=== PATIENT | female | born 1995 | race Caucasian/White ===

== ENCOUNTER → 2018-08-02 | Outpatient (CLI) | payer BC ==
[2018-08-02 12:50] LABS: Basophils % (A) 1 %; Eosinophils # (A) 0.1 k/uL (0-0.7); Eosinophils % (A) 3 %; HCT 40.3 % (34.0-46.0); HGB 12.7 gm/dL (11.4-16.0); Lymphocytes # (A) 1.7 k/uL (1.0-4.8); Lymphocytes % (A) 32 %; MCHC 31.5 g/dL (31.0-37.0); MCV 88.8 fL (80.0-100.0); Mean Platelet Volume 6.2; Monocytes # (A) 0.2 k/uL (0-1.0); Monocytes % (A) 5 %; Neutrophils # (A) 3.1 k/uL (1.3-7.7); Neutrophils % (A) 58 %; Platelet Count 293 k/uL (150-450); RBC 4.54 m/uL (3.80-5.40); RDW 12.5 % (11.5-15.5); WBC 5.4 k/uL (3.8-10.6)
[2018-08-02 19:56] LABS: Codfish IgE <0.10 kU/L; Egg White IgE 0.28 kU/L
[2018-08-02 19:57] LABS: Peanut IgE <0.10 kU/L; Soybean IgE <0.10 kU/L
[2018-08-02 19:58] LABS: Clam IgE <0.10 kU/L; Shrimp IgE <0.10 kU/L; Walnut IgE (Food) <0.10 kU/L
[2018-08-02 19:59] LABS: Scallop IgE <0.10 kU/L
[2018-08-02 20:51] LABS: Albumin 4.3 g/dL (3.80-4.90); Albumin/Globulin Ratio 2.26 (1.20-2.10); Anion Gap 6.5 mmol/L (4.00-12.00); Calcium 9.3 mg/dL (8.7-10.3); Carbon Dioxide 27.5 mmol/L (21.6-31.8); Globulin 1.9 g/dL (1.6-3.3); Potassium 4.5 mmol/L (3.5-5.5); Total Bilirubin 0.4 mg/dL (0.2-1.2); Total Protein 6.2 g/dL (6.2-8.2)
[2018-08-02 20:52] LABS: Immunoglobulin E 9.47 IU/mL (0.00-114.00)
== END | disposition home or self-care (01) ==
LOC: LABWHC1 11:42
PROVIDERS: ATTEND Nurse Practitioner Family
DX: K92.1 Melena (principal); R19.7 Diarrhea, unspecified; R19.4 Change in bowel habit
CPT/HCPCS: 36415; 80053; 82785; 84443; 85025; 86003; 87045; 87046; 87328; 87329

== ENCOUNTER 2018-10-03 08:37 | Day surgery (SDC) | payer BC ==
[2018-09-28 15:30] VITALS: BMI 22.3
[~2018-10-03 08:37] MED LIST: DEXAMETHASONE SOD PHOSPHATE 10 MG/ML 1 ML VIAL IV ONE; LACTATED RINGERS 1,000 ML IV SCH; ONDANSETRON 4 MG/2 ML VIAL IVP ONE
[2018-10-03 09:03] VITALS: RESP 16; TEMP 98.4
[2018-10-03] MEDS ORDERED: LIDOCAINE 1% 20 ML VIAL (10MG/ML) FOR IV START INTRADERMA ONE (09:07)
[2018-10-03] MEDS ORDERED: MIDAZOLAM 2 MG/2 ML VIAL ONE (09:39)
[2018-10-03] MEDS ORDERED: PROPOFOL 10 MG/ML 20 ML VIAL IV ONE (09:39)
[2018-10-03] MEDS ORDERED: LIDOCAINE 1% INJ 10MG/ML (20 ML MDV) ONE (09:39)
--- NOTE | 2018-10-03 10:28 | P.PCN ---
Date of Procedure: 10/03/18 Procedure(s) Performed: Procedure: Colonoscopy and biopsy. Preoperative diagnosis: Rectal bleeding. Postoperative diagnosis: 1. 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 2. Rectal biopsies obtained. Preparation: HalfLytely prep. Sedation: Was provided by anesthesia. Brief clinical history: The patient is a 22-year-old female who I have evaluated in the office 08/18/2018 because of change in bowel habits with frequent loose bowel movements with mucus and blood since September of last year. This evaluation is scheduled for possible inflammatory bowel disease. Procedure: With the patient on her left lateral decubitus position and after informed consent and adequate sedation, the perianal area was inspected and it did not show any fissures or fistulas. There were no masses felt on digital rectal examination. The Olympus CFH 190L video colonoscope was then inserted in the rectum and the usual fashion and advanced to the cecum. The distal 17-18 cm in the rectum and sigmoid showed the edema, erythema, friability and exudation but no obvious ulcerations or spontaneous bleeding. Proximal to that, the colon appeared healthy. I obtained biopsies from the rectum then the endoscope was withdrawn. The patient tolerated the procedure well. Plan: I summarized the findings to the patient. I suggested mesalamine suppositories or oral mesalamine and she preferred the oral option. I will see her in the office in follow-up and keep you updated on her progress.
[2018-10-03 10:30] VITALS: BP 123/81; PULSE 72
== END 2018-10-03 10:45 | disposition home or self-care (01) ==
LOC: ORWHC2ENDO 08:37
DX: K52.9 Noninfective gastroenteritis and colitis, unspecified (principal); K63.89 Other specified diseases of intestine; Z79.3 Long term (current) use of hormonal contraceptives
CPT/HCPCS: 81025; 88305; 45380; J2250; J2001; J2704

== ENCOUNTER → 2019-11-27 | Outpatient (CLI) | payer BC ==
[2019-11-27 09:30] LABS: HCT 42.4 % (34.0-46.0); MCH 28.2 pg (25.0-35.0); MCHC 30.7 g/dL (31.0-37.0); MCV 91.9 fL (80.0-100.0); Mean Platelet Volume 7.3; Platelet Count 310 k/uL (150-450); RBC 4.62 m/uL (3.80-5.40); RDW 12.5 % (11.5-15.5); WBC 4.9 k/uL (3.8-10.6)
[2019-11-27 11:22] LABS: Erythrocyte Sedimentation Rate 3 mm/hr (0-20)
[2019-11-27 16:16] LABS: C Reactive Protein 0.6 mg/dL (0.0-0.8)
[2019-11-27 16:17] LABS: African American GFR (CKD) 121.3 (60.0-200.0); Albumin 4.2 g/dL (3.80-4.90); Anion Gap 10.6 mmol/L (4.00-12.00); BUN/Creat Ratio 13.75 Ratio (12.00-20.00); Calcium 9.2 mg/dL (8.7-10.3); Carbon Dioxide 24.4 mmol/L (21.6-31.8); Globulin 2.1 g/dL (1.6-3.3); Non-African American GFR(CKD) 104.6 (60.0-200.0); Potassium 4.4 mmol/L (3.5-5.5); Total Bilirubin 0.3 mg/dL (0.3-1.2); Total Protein 6.3 g/dL (6.2-8.2)
[2019-11-27 16:47] LABS: Gliadin AB IgA, Deaminated NEGATIVE (NEGATIVE); Gliadin AB IgA, Unit <0.2 U/mL; Gliadin AB IgG, Deaminated NEGATIVE (NEGATIVE)
== END | disposition home or self-care (01) ==
LOC: LABWHC1 08:36
PROVIDERS: ATTEND Physician Assistant
DX: K63.89 Other specified diseases of intestine (principal); Z83.2 Family history of diseases of the blood and blood-forming organs and certain disorders involving the immune mechanism
CPT/HCPCS: 36415; 80053; 81241; 83516; 85027; 85652; 86140

== ENCOUNTER 2020-03-14 08:53 | Emergency (ER) | payer BC ==
[2020-03-14] MEDS ORDERED: KETOROLAC 15 MG/ML 1 ML VIAL IVP STA (09:35)
[2020-03-14] MEDS ORDERED: ONDANSETRON 4 MG/2 ML VIAL IVP STA (09:35)
[2020-03-14] MEDS ORDERED: SODIUM CHLORIDE 0.9% 1,000 ML IV STA (09:35)
[2020-03-14] MEDS ORDERED: PANTOPRAZOLE 40 MG/10 ML VIAL IVP STA (09:35)
[2020-03-14 09:41] LABS: Appearance,Urine Clear (Clear); Bilirubin,Urine Negative (Negative); Blood,Urine Negative (Negative); Color,Urine Yellow; Glucose,Urine (UA) Negative (Negative); Ketones,Urine Negative (Negative); Leukocyte Esterase,Urine Negative (Negative); Nitrite,Urine Negative (Negative); Protein,Urine Negative (Negative); Specific Gravity,Urine 1.012 (1.001-1.035); Urobilinogen,Urine <2.0 mg/dL (<2.0)
[2020-03-14] MEDS ORDERED: SODIUM CHLORIDE 0.9% 1,000 ML IV SCH (09:45)
--- NOTE | 2020-03-14 09:45 | ED ---
Abdominal Pain HPI - General Chief Complaint: Abdominal Pain Stated Complaint: ABD pain Time Seen by Provider: 03/14/20 09:18 Source: patient, RN notes reviewed, old records reviewed Mode of arrival: ambulatory Limitations: no limitations - History of Present Illness Initial Comments: Patient seen 24-year-old female presents returns today with 2 days of abdominal pain and cramping in nature. Patient reports she's been having some diarrhea which occasionally is bloody. She states that she's been evaluated for celiac disease and had a colonoscopy that showed proximal sigmoid colitis in the past. Patient states that she's had no nausea or vomiting. She reports cramping abdominal pain. She denies any fevers or chills. - Related Data Home Medications Medication Instructions Recorded Confirmed Norethindrone-E.estradiol-Iron 1 each PO DAILY 09/28/18 10/03/18 [Junel Fe 24 Tablet] Previous Rx's Medication Instructions Recorded Ondansetron Odt [Zofran Odt] 4 mg PO Q8HR PRN #12 tab 03/14/20 Pantoprazole Sodium [Protonix] 40 mg PO DAILY #10 tablet.dr 03/14/20 Sulfamethox-Tmp 800-160Mg [Bactrim 1 tab PO BID #10 tab 03/14/20 DS 800-160 mg] Allergies Allergy/AdvReac Type Severity Reaction Status Date / Time No Known Allergies Allergy Verified 03/14/20 09:09 Review of Systems ROS Statement: Those systems with pertinent positive or pertinent negative responses have been documented in the HPI. ROS Other: All systems not noted in ROS Statement are negative. Past Medical History Additional Past Medical History / Comment(s): rectal bleeding, gas, bloating for almost a year, worse lately History of Any Multi-Drug Resistant Organisms: None Reported Past Surgical History: No Surgical Hx Reported Additional Past Anesthesia/Blood Transfusion Reaction / Comment(s): no family problems w/anesthesia Past Psychological History: No Psychological Hx Reported Smoking Status: Never smoker Past Alcohol Use History: Occasional Past Drug Use History: None Reported - Past Family History Mother Family Medical History: No Reported History General Exam - General Exam Comments Initial Comments: 24-year-old female. Alert and oriented. Limitations: no limitations General appearance: alert, in no apparent distress Head exam: Present: atraumatic, normocephalic, normal inspection Eye exam: Present: normal appearance ENT exam: Present: normal exam, mucous membranes moist Neck exam: Present: normal inspection. Absent: tenderness, meningismus, lymphadenopathy Respiratory exam: Present: normal lung sounds bilaterally. Absent: respiratory distress, wheezes, rales, rhonchi, stridor Cardiovascular Exam: Present: regular rate, normal rhythm, normal heart sounds. Absent: systolic murmur, diastolic murmur, rubs, gallop, clicks GI/Abdominal exam: Present: soft, tenderness (lower left tenderness), normal bowel sounds. Absent: distended, guarding, rebound, rigid Extremities exam: Present: normal inspection, full ROM, normal capillary refill. Absent: tenderness, pedal edema, joint swelling, calf tenderness Back exam: Present: normal inspection Neurological exam: Present: alert, oriented X3, CN II-XII intact Psychiatric exam: Present: normal affect, normal mood Skin exam: Present: warm, dry, intact, normal color. Absent: rash Course Vital Signs 03/14/20 03/14/20 09:07 10:23 Temperature 99.1 F 98.3 F Pulse Rate 72 76 Respiratory 16 18 Rate Blood Pressure 129/82 121/65 O2 Sat by Pulse 99 100 Oximetry Medical Decision Making - Medical Decision Making Patient presents with 2 days of crampy abdominal pain. Mainly in the left side. No fevers. Labs reviewed and unremarkable. Patient has not had a bowel movement while in emergency department. She reports occasional diarrhea. And once in a while is bloody. She's been having this for a few months. Her hemoglobin is stable. Discussed Patient might be suffering from colitis of the tile history of diarrhea and cramping abdominal pain. I discussed following up with GI. Discussed at this time treatment for lightheadedness with short course of antibiotic until further evaluation. Patient is agreeable to plan. - Lab Data Result diagrams: 03/14/20 09:38 03/14/20 09:38 Lab Results 03/14/20 03/14/20 03/14/20 Range/Units 09:18 09:18 09:38 WBC 7.5 (3.8-10.6) k/uL RBC 4.65 (3.80-5.40) m/uL Hgb 13.1 (11.4-16.0) gm/dL Hct 41.1 (34.0-46.0) % MCV 88.3 (80.0-100.0) fL MCH 28.2 (25.0-35.0) pg MCHC 31.9 (31.0-37.0) g/dL RDW 12.8 (11.5-15.5) % Plt Count 320 (150-450) k/uL Neutrophils % 68 % Lymphocytes % 20 % Monocytes % 9 % Eosinophils % 1 % Basophils % 1 % Neutrophils # 5.2 (1.3-7.7) k/uL Lymphocytes # 1.5 (1.0-4.8) k/uL Monocytes # 0.7 (0-1.0) k/uL Eosinophils # 0.1 (0-0.7) k/uL Basophils # 0.1 (0-0.2) k/uL PT (9.0-12.0) sec INR (<1.2) APTT (22.0-30.0) sec Sodium (137-145) mmol/L Potassium (3.5-5.1) mmol/L Chloride (98-107) mmol/L Carbon Dioxide (22-30) mmol/L Anion Gap mmol/L BUN (7-17) mg/dL Creatinine (0.52-1.04) mg/dL Est GFR (CKD-EPI)AfAm (>60 ml/min/1.73 sqM) Est GFR (CKD-EPI)NonAf (>60 ml/min/1.73 sqM) Glucose (74-99) mg/dL Calcium (8.4-10.2) mg/dL Total Bilirubin (0.2-1.3) mg/dL AST (14-36) U/L ALT (4-34) U/L Alkaline Phosphatase (38-126) U/L Total Protein (6.3-8.2) g/dL Albumin (3.5-5.0) g/dL Amylase (30-110) U/L Lipase (23-300) U/L Urine Color Yellow Urine Appearance Clear (Clear) Urine pH 6.0 (5.0-8.0) Ur Specific [place] 1.012 (1.001-1.035) Urine Protein Negative (Negative) Urine Glucose (UA) Negative (Negative) Urine Ketones Negative (Negative) Urine Blood Negative (Negative) Urine Nitrite Negative (Negative) Urine Bilirubin Negative (Negative) Urine Urobilinogen <2.0 (<2.0) mg/dL Ur Leukocyte Esterase Negative (Negative) Urine HCG, Qual Not Detected (Not Detectd) 03/14/20 03/14/20 Range/Units 09:38 09:38 WBC (3.8-10.6) k/uL RBC (3.80-5.40) m/uL Hgb (11.4-16.0) gm/dL Hct (34.0-46.0) % MCV (80.0-100.0) fL MCH (25.0-35.0) pg MCHC (31.0-37.0) g/dL RDW (11.5-15.5) % Plt Count (150-450) k/uL Neutrophils % % Lymphocytes % % Monocytes % % Eosinophils % % Basophils % % Neutrophils # (1.3-7.7) k/uL Lymphocytes # (1.0-4.8) k/uL Monocytes # (0-1.0) k/uL Eosinophils # (0-0.7) k/uL Basophils # (0-0.2) k/uL PT 9.6 (9.0-12.0) sec INR 0.9 (<1.2) APTT 23.4 (22.0-30.0) sec Sodium 137 (137-145) mmol/L Potassium 4.2 (3.5-5.1) mmol/L Chloride 105 (98-107) mmol/L Carbon Dioxide 26 (22-30) mmol/L Anion Gap 6 mmol/L BUN 7 (7-17) mg/dL Creatinine 0.65 (0.52-1.04) mg/dL Est GFR (CKD-EPI)AfAm >90 (>60 ml/min/1.73 sqM) Est GFR (CKD-EPI)NonAf >90 (>60 ml/min/1.73 sqM) Glucose 102 H (74-99) mg/dL Calcium 9.2 (8.4-10.2) mg/dL Total Bilirubin 0.5 (0.2-1.3) mg/dL AST 23 (14-36) U/L ALT 16 (4-34) U/L Alkaline Phosphatase 54 (38-126) U/L Total Protein 6.6 (6.3-8.2) g/dL Albumin 4.1 (3.5-5.0) g/dL Amylase 38 (30-110) U/L Lipase 66 (23-300) U/L Urine Color Urine Appearance (Clear) Urine pH (5.0-8.0) Ur Specific [place] (1.001-1.035) Urine Protein (Negative) Urine Glucose (UA) (Negative) Urine Ketones (Negative) Urine Blood (Negative) Urine Nitrite (Negative) Urine Bilirubin (Negative) Urine Urobilinogen (<2.0) mg/dL Ur Leukocyte Esterase (Negative) Urine HCG, Qual (Not Detectd) Disposition Clinical Impression: Abdominal pain, Diarrhea Disposition: HOME SELF-CARE Condition: Good Instructions (If sedation given, give patient instructions): Abdominal Pain (ED) Additional Instructions: Patient has a follow-up with PCP. Recommended complaining stool sample and returning for further evaluation. Patient can use. Prescriptions: Sulfamethox-Tmp 800-160Mg [Bactrim DS 800-160 mg] 1 tab PO BID #10 tab Pantoprazole Sodium [Protonix] 40 mg PO DAILY #10 tablet. Ondansetron Odt [Zofran Odt] 4 mg PO Q8HR PRN #12 tab PRN Reason: Is patient prescribed a controlled substance at d/c from ED?: No Referrals: Jm Dewey Jr, DO [Primary Care Provider] - 1-2 days Lizbet Elizondo MD [STAFF PHYSICIAN] - 1-2 days Time of Disposition: 11:08
[2020-03-14 09:59] LABS: Basophils # (A) 0.1 k/uL (0-0.2); Basophils % (A) 1 %; Eosinophils # (A) 0.1 k/uL (0-0.7); Eosinophils % (A) 1 %; HCT 41.1 % (34.0-46.0); HGB 13.1 gm/dL (11.4-16.0); Lymphocytes # (A) 1.5 k/uL (1.0-4.8); Lymphocytes % (A) 20 %; MCH 28.2 pg (25.0-35.0); MCHC 31.9 g/dL (31.0-37.0); MCV 88.3 fL (80.0-100.0); Mean Platelet Volume 7.1; Monocytes # (A) 0.7 k/uL (0-1.0); Monocytes % (A) 9 %; Neutrophils # (A) 5.2 k/uL (1.3-7.7); Neutrophils % (A) 68 %; Platelet Count 320 k/uL (150-450); RBC 4.65 m/uL (3.80-5.40); RDW 12.8 % (11.5-15.5); WBC 7.5 k/uL (3.8-10.6)
[2020-03-14 10:10] LABS: ALT 16 U/L (4-34); AST 23 U/L (14-36); African American GFR (CKD) >90 (>60 ml/min/1.73 sqM); Albumin 4.1 g/dL (3.5-5.0); Alkaline Phosphatase 54 U/L (38-126); Amylase 38 U/L (30-110); Anion Gap 6 mmol/L; Blood Urea Nitrogen 7 mg/dL (7-17); Calcium 9.2 mg/dL (8.4-10.2); Carbon Dioxide 26 mmol/L (22-30); Chloride 105 mmol/L (98-107); Glucose 102 mg/dL (74-99); Non-African American GFR(CKD) >90 (>60 ml/min/1.73 sqM); Potassium 4.2 mmol/L (3.5-5.1); Sodium 137 mmol/L (137-145); Total Bilirubin 0.5 mg/dL (0.2-1.3); Total Protein 6.6 g/dL (6.3-8.2)
[2020-03-14 10:16] LABS: INR 0.9 (<1.2); Partial Thromboplastin Time 23.4 sec (22.0-30.0); Prothrombin Time 9.6 sec (9.0-12.0)
[2020-03-14 10:25] VITALS: BP 121/65; PULSE 76; RESP 18; TEMP 98.3
== END 2020-03-14 11:18 | disposition home or self-care (01) ==
LOC: EC 08:53
DX: R10.9 Unspecified abdominal pain (principal); R19.7 Diarrhea, unspecified; R10.814 Left lower quadrant abdominal tenderness
CPT/HCPCS: 36415; 80053; 82150; 83690; 85025; 85610; 85730; 81003; 81025; 99284; 96374; 96375 ×2; 96361; J2405; J1885; C9113

== ENCOUNTER 2021-11-25 16:04 | Inpatient (IN) | payer BC ==
--- NOTE | 2021-11-25 06:55 | P.HPOB ---
History of Present Illness H&P Date: 11/25/21 Chief Complaint: Leiden Factor V mutation, for induction of labor This patient is a pleasant 25-year-old 1 para 0 female estimated date of confinement 12/03/2021 estimated gestational age 39-0/7 weeks gestation who is admitted to labor and delivery for two-stage induction of labor secondary to anticoagulation use during due to a Leiden factor V genetic disorder. Patient's history is such that she was diagnosed with Leiden factor V after her mother had a thromboembolic event. It was advised that she started on anticoagulation therapy at 12 weeks. Patient began Lovenox at that time was changed over to heparin at 36 weeks. Patient did see maternal medicine because her was a questionable anechoic fluid collection in the placenta but this turned out to be placental lakes. Patient also had elevated blood pressure about a week ago however preeclampsia labs were negative. Due to the patient's genetic disorder an increased risk of thrombolic event recommendations were to proceed with delivery after discontinuing her anticoagulation at 39 weeks. Patient does have an unfavorable cervix and therefore presents for Cervidil. Review of Systems Genitourinary: Reports Menstruation: Reports amenorrhea Past Medical History Additional Past Medical History / Comment(s): Leiden factor V gene mutation, heterozygous. Patient also has procto-sigmoiditis History of Any Multi-Drug Resistant Organisms: None Reported Past Surgical History: No Surgical Hx Reported Past Anesthesia/Blood Transfusion Reactions: No Reported Reaction Additional Past Anesthesia/Blood Transfusion Reaction / Comment(s): no family problems w/anesthesia Past Psychological History: No Psychological Hx Reported Smoking Status: Never smoker Past Alcohol Use History: None Reported Past Drug Use History: None Reported - Past Family History Mother Family Medical History: No Reported History Medications and Allergies Home Medications Medication Instructions Recorded Confirmed Type Pnv,Calcium 72/Iron/Folic Acid 1 tab PO DAILY 07/26/21 07/26/21 History [ Plus Tablet] Allergies Allergy/AdvReac Type Severity Reaction Status Date / Time No Known Allergies Allergy Verified 07/26/21 20:05 Exam - OBG Physical Exam Abdomen: bowel sounds normal, no diffuse tenderness, no bruit present, no guarding noted, no hepatomegaly, no splenomegaly, no mass Vulva: both: normal Vagina: normal moisture, no discharge Cervix: no lesion (Cervix is closed and thick), no discharge Uterus: enlarged (Fundal height 38 cm) Results blood work shows she is A positive, rubella immune, RPR nonreactive, hepatitis B negative, HIV is nonreactive, Glucola was normal, group B strep was positive, most recent ultrasound showed estimated weight is 6 lbs. 0 oz. This was approximately 3 weeks ago. Assessment and Plan Assessment: This is a pleasant 25-year-old 1 para 0 female 39-0/7 weeks gestation with known Leiden factor V changed mutation on anticoagulation therapy for induction of labor with an unfavorable cervix. Plan is to check her coagulation factors, she's been off heparin for about 24 hours. Proceed with induction by Cervidil and anticipate vaginal delivery. (1) 39 weeks gestation of Status: Acute Code(s): Z3A.39 - 39 WEEKS GESTATION OF SNOMED Code(s): 49920794 (2) Factor 5 Leiden mutation, heterozygous Status: Acute Code(s): D68.51 - ACTIVATED PROTEIN C RESISTANCE SNOMED Code(s): 705601747 (3) Group B streptococcal carriage complicating Status: Acute Code(s): O99.820 - STREPTOCOCCUS B CARRIER STATE COMPLICATING SNOMED Code(s): 695922964646011
[2021-11-25] MEDS ORDERED: DINOPROSTONE 10 MG INSERT.ER VAGINAL ONE (16:39)
[2021-11-25 18:00] LABS: Basophils # (A) 0.1 k/uL (0-0.2); Basophils % (A) 1 %; Eosinophils % (A) 0 %; HCT 31.3 % (34.0-46.0); HGB 9.5 gm/dL (11.4-16.0); Hypochromasia Moderate; Lymphocytes # (A) 1.6 k/uL (1.0-4.8); Lymphocytes % (A) 14 %; MCH 25.9 pg (25.0-35.0); MCHC 30.5 g/dL (31.0-37.0); MCV 85.1 fL (80.0-100.0); Monocytes # (A) 0.7 k/uL (0-1.0); Monocytes % (A) 6 %; Neutrophils # (A) 8.9 k/uL (1.3-7.7); Neutrophils % (A) 77 %; Platelet Count 329 k/uL (150-450); RBC 3.68 m/uL (3.80-5.40); RDW 15.4 % (11.5-15.5); WBC 11.6 k/uL (3.8-10.6)
[2021-11-25 18:11] LABS: INR 0.8 (<1.2); Partial Thromboplastin Time 22.1 sec (22.0-30.0); Prothrombin Time 9.5 sec (9.0-12.0)
[2021-11-25] MEDS: BUTORPHANOL 1 MG/ML 1 ML VIAL IV PRN ×2 (22:04→23:58)
[2021-11-25] MEDS ORDERED: TERBUTALINE 1 MG/ML VIAL SQ PRN (23:45)
[2021-11-25] MEDS ORDERED: OXYTOCIN 10 UNIT/ML 1 ML VIAL IM PRN (23:45)
[2021-11-25] MEDS ORDERED: METHYLERGONOVINE 0.2 MG/ML 1 ML AMP IM PRN (23:45)
[2021-11-25] MEDS ORDERED: LACTATED RINGERS 1,000 ML IV SCH (23:45)
[2021-11-25] MEDS ORDERED: CARBOPROST TROMETHAMINE 250 MCG/ML 1 ML AMP IM PRN (23:45)
[2021-11-25] MEDS ORDERED: OXYTOCIN 30 UNITS/500 ML NS 30 UNIT in SALINE 1 500ML.BAG IV SCH (23:45)
[2021-11-25] MEDS ORDERED: LIDOCAINE 1% (PF) 10 MG/ML (30 ML SDV) SQ PRN (23:45)
[2021-11-25] MEDS: LACTATED RINGERS 1,000 ML IV SCH (23:58)
[2021-11-26] MEDS ORDERED: AMPICILLIN 2,000 MG in SODIUM CHLORIDE 0.9% 100 ML IVPB ONE ×2
[2021-11-26] MEDS ORDERED: fentaNYL (PF) 50 MCG/ML 5 ML AMP ONE (01:49)
[2021-11-26] MEDS ORDERED: SODIUM CHLORIDE 0.9% 100 ML BAG ONE (01:49)
[2021-11-26] MEDS ORDERED: ROPIVACAINE 5MG/ML 20ML VIAL ONE (01:49)
[2021-11-26] MEDS ORDERED: AMPICILLIN 1,000 MG in SODIUM CHLORIDE 0.9% 50 ML IVPB SCH (04:00)
[2021-11-26] MEDS: LACTATED RINGERS 1,000 ML IV SCH (04:47)
[2021-11-26] MEDS ORDERED: HYDROCORTISONE 2.5% RECTAL CREAM 30 GM TUBE RECTAL PRN (07:20)
[2021-11-26] MEDS ORDERED: LANOLIN CREAM 5 GM TUBE TOPICAL PRN (07:20)
[2021-11-26] MEDS ORDERED: diphenhydrAMINE 50 MG/ML 1 ML VIAL IVP PRN (07:20)
[2021-11-26] MEDS ORDERED: bisacodyL 10 MG SUPP RECTAL PRN (07:20)
[2021-11-26] MEDS ORDERED: SIMETHICONE 80 MG CHEWABLE PO PRN (07:20)
[2021-11-26] MEDS ORDERED: IBUPROFEN 600 MG TAB PO PRN (07:20)
[2021-11-26] MEDS ORDERED: diphenhydrAMINE 25 MG CAP PO PRN (07:20)
[2021-11-26] MEDS ORDERED: ZOLPIDEM 5 MG TAB PO PRN (07:20)
[2021-11-26] MEDS ORDERED: BENZOCAINE/MENTHOL SPRAY 1 GM/SPRAY AEROSOL TOPICAL PRN (07:20)
[2021-11-26] MEDS ORDERED: OXYTOCIN 30 UNITS/500 ML NS 30 UNIT in SALINE 1 500ML.BAG IV SCH (07:30)
--- NOTE | 2021-11-26 07:30 | P.PROBDLV ---
Vaginal Delivery Note - . Vaginal Delivery Note: Normal spontaneous vaginal delivery viable female infant Apgars 9 and 9 delivery time 0659 hours. Please see dictated H&P for intimate details of this patient's admission. Brief summary this is a pleasant 25-year-old 1 para 0 female 39 weeks gestation admitted to labor and delivery last evening for two-stage induction of labor secondary to positive Leiden factor V and anticoagulation therapy. Patient is closed and thick has a Cervidil placed. Patient does become uncomfortable and receives 2 doses of Stadol and then the Cervidil is removed at around 1:30 AM. Patient continues to progress gets to complete. At this time she has artificial rupture membranes for clear fluid. Patient begins pushing hours ineffective and therefore the epidural is discontinued. Patient then begins to have the urge to push and therefore pushes for approximately 1 hour 15 minutes. Patient pushes the head to the perineum. She does have some intermittent episodes of bradycardia which resolved when we skip pushing. Patient pushes the head to the perineum and this time as follows best to do an episiotomy to facilitate delivery. With this done and one push immediately deliveries the infant's head and a controlled fashion over the perineum. Mouth and nares are bulb suctioned. There is a double nuchal cord which is loose and easily reduced there is also a hand presenting anteriorly. With gentle downward traction we have delivery of the anterior and posterior shoulder and rest this 's body. This is a vigorous viable female infant Apgars are 9 and 9 delivery time is 0659 hours. After delivery of the the infant is late on the mother's abdomen. After the cord is done pulsating is doubly clamped and cut. Sent is then spontaneously delivered intact. Inspection of perineum shows second-degree laceration was repaired with 3-0 V icryl in the usual fashion excellent reapproximation is noted. Estimated blood loss approximately 100 mL. All counts are correct 3. There are no complications. and mother stable delivery room.
[2021-11-26] MEDS: ACETAMINOPHEN TAB 325 MG TAB PO PRN ×2 (08:16→16:04)
[2021-11-26] MEDS: SENNOSIDES-DOCUSATE SODIUM 1 EACH TAB PO SCH (08:17)
[2021-11-26] MEDS ORDERED: HEPARIN SODIUM,PORCINE/PF 5,000 UNIT/0.5 ML SYRINGE SQ ONE (16:00)
[2021-11-27] MEDS: SENNOSIDES-DOCUSATE SODIUM 1 EACH TAB PO SCH ×2 (01:41→07:34)
--- NOTE | 2021-11-27 06:00 | P.PNOBGVD ---
Subjective - Subjective Patient reports: Reports appetite normal, Reports voiding normally, Reports pain well controlled, Reports ambulating normally : doing well Objective - Latest Vital Signs Latest vital signs: Vital Signs Temp Pulse Resp BP 11/27/21 00:00 98.2 F 84 16 144/84 11/26/21 20:00 97.9 F 89 16 135/74 11/26/21 16:00 98.3 F 102 H 16 123/78 11/26/21 12:00 98.3 F 88 16 113/71 11/26/21 09:15 98.5 F 103 H 16 138/80 11/26/21 08:45 93 16 136/69 11/26/21 08:15 99 16 139/86 11/26/21 08:00 97 16 135/85 11/26/21 07:45 100 16 141/69 11/26/21 07:30 104 H 16 135/86 11/26/21 07:15 98.7 F 109 H 16 135/87 Intake and Output 11/26/21 11/26/21 11/27/21 14:59 22:59 06:59 Intake Total 167 Output Total 110 Balance 57 Intake: Intake, IV Titration 167 Amount Oxytocin 30 Units/500 ml 167 Ns 30 unit In Saline 1 500ml.bag @ Per Protocol IV .Q0M [facility] Rx#:[id number] Output: Output, Quantitative 110 Blood Loss Other: # Voids 1 2 1 - Exam Lungs: bilateral: normal Chest: Normal S1, Normal S2 Extremities: Present: normal Abdomen: Present: normal appearance, soft Uterus: Present: normal, firm Assessment and Plan Assessment: day #1. Patient is resting without new complaints. She did receive a dose of heparin last evening and we'll begin back on her Lovenox morning. Vital signs are stable she's afebrile. Uterus is firm nontender and she is having normal lochia. My impression this is a normal course. Plan today is to restart her Lovenox and if her bleeding is fine discharge home later today. (1) 39 weeks gestation of Current Visit: No Status: Acute Code(s): Z3A.39 - 39 WEEKS GESTATION OF SNOMED Code(s): 82984018 (2) Factor 5 Leiden mutation, heterozygous Current Visit: No Status: Acute Code(s): D68.51 - ACTIVATED PROTEIN C RESISTANCE SNOMED Code(s): 326508640 (3) Group B streptococcal carriage complicating Current Visit: No Status: Acute Code(s): O99.820 - STREPTOCOCCUS B CARRIER STATE COMPLICATING SNOMED Code(s): 678369302259898
--- NOTE | 2021-11-27 06:04 | P.DS ---
Providers Date of admission: 11/25/21 16:04 Expected date of discharge: 11/27/21 Attending physician: Karri Christianson Primary care physician: Jm Dewey - Discharge Diagnosis(es) (1) 39 weeks gestation of Current Visit: No Status: Acute (2) Factor 5 Leiden mutation, heterozygous Current Visit: No Status: Acute (3) Group B streptococcal carriage complicating Current Visit: No Status: Acute Hospital Course: Please see dictated H&P for intimate details of this patient's admission. Brief summary this is a pleasant 25-year-old 1 para 0 female 39 weeks gestation with positive Leiden factor V gene disorder. Patient is admitted for two-stage induction of labor. She had admission and coagulation factors which were normal. She had Cervidil induction went on to have a vaginal delivery viable female infant. Please see dictated delivery note. she is placed on heparin. Bleeding continued to be normal and therefore changed over to Lovenox. On 1 she is felt to be stable for discharge home follow up with me in 6 weeks. Procedures: Two-stage induction of labor and normal vaginal delivery Patient Condition at Discharge: Good Plan - Discharge Summary New Discharge Prescriptions: No Action Pnv,Calcium 72/Iron/Folic Acid [ Plus Tablet] 1 tab PO DAILY Heparin Sodium,Porcine [Heparin Sodium] 50,000 units SQ Q12HR Discharge Medication List Pnv,Calcium 72/Iron/Folic Acid [ Plus Tablet] 1 tab PO DAILY 07/26/21 [History] Heparin Sodium,Porcine [Heparin Sodium] 50,000 units SQ Q12HR 11/25/21 [History] Follow up Appointment(s)/Referral(s): Karri Christianson MD [STAFF PHYSICIAN] - 01/14/22 8:45 am Patient Instructions/Handouts: Vaginal Delivery (DC) Activity/Diet/Wound Care/Special Instructions: No intercourse or anything per vagina. Please call if any fever, chills, excessive vaginal bleeding, and/or abdominal pain. Continue Lovenox as instructed. Discharge Disposition: HOME SELF-CARE
[2021-11-27 07:54] LABS: Anisocytosis Slight; Basophils % (A) 0 %; Eosinophils # (A) 0.1 k/uL (0-0.7); Eosinophils % (A) 1 %; HCT 29.5 % (34.0-46.0); HGB 9.2 gm/dL (11.4-16.0); Hypochromasia Marked; Lymphocytes # (A) 1.9 k/uL (1.0-4.8); Lymphocytes % (A) 16 %; MCH 26.5 pg (25.0-35.0); MCV 85.2 fL (80.0-100.0); Mean Platelet Volume 7.7; Monocytes # (A) 0.6 k/uL (0-1.0); Monocytes % (A) 5 %; Neutrophils # (A) 8.9 k/uL (1.3-7.7); Neutrophils % (A) 74 %; Platelet Count 337 k/uL (150-450); RBC 3.46 m/uL (3.80-5.40); RDW 16.7 % (11.5-15.5)
[2021-11-27] MEDS ORDERED: ENOXAPARIN 40 MG/0.4 ML SYRINGE SQ SCH (09:00)
[2021-11-27 10:37] VITALS: BP 114/67; PULSE 86; RESP 18; TEMP 98
== END 2021-11-27 12:35 | disposition home or self-care (01) | DRG 806 ==
LOC: 4FBP 16:04
PROVIDERS: ADMIT Obstetrics & Gynecology; ATTEND Obstetrics & Gynecology
PROC: 10E0XZZ Delivery of Products of Conception, External Approach (ICD-10-PCS; principal; 2021-11-26)
PROC: 3E0P7VZ Introduction of Hormone into Female Reproductive, Via Natural or Artificial Opening (ICD-10-PCS; 2021-11-26)
PROC: 10907ZC Drainage of Amniotic Fluid, Therapeutic from Products of Conception, Via Natural or Artificial Opening (ICD-10-PCS; 2021-11-26)
PROC: 4A0HXCZ Measurement of Products of Conception, Cardiac Rate, External Approach (ICD-10-PCS; 2021-11-26)
PROC: 0W8NXZZ Division of Female Perineum, External Approach (ICD-10-PCS; 2021-11-26)
DX: O34.33 Maternal care for cervical incompetence, third trimester (principal); D68.51 Activated protein C resistance; Z37.0 Single live birth; O99.12 Other diseases of the blood and blood-forming organs and certain disorders involving the immune mechanism complicating childbirth; O69.81X0 Labor and delivery complicated by cord around neck, without compression, not applicable or unspecified; O99.824 Streptococcus B carrier state complicating childbirth; O99.892 Other specified diseases and conditions complicating childbirth; R00.1 Bradycardia, unspecified; O99.62 Diseases of the digestive system complicating childbirth; K63.89 Other specified diseases of intestine; Z3A.39 39 weeks gestation of pregnancy
CPT/HCPCS: 85025; 85610; 85730; 86850; 86900; 86901

== ENCOUNTER 2024-03-09 06:00 | Inpatient (IN) | payer BC | END 2024-03-10 16:40 | disposition home or self-care (01) | DRG 806 | LOC: 4FBP 06:00 | PROVIDERS: ADMIT Obstetrics & Gynecology; ATTEND Obstetrics & Gynecology | PROC: 10E0XZZ Delivery of Products of Conception, External Approach (ICD-10-PCS; principal; 2024-03-09) | PROC: 0KQM0ZZ Repair Perineum Muscle, Open Approach (ICD-10-PCS; 2024-03-09) | PROC: 10907ZC Drainage of Amniotic Fluid, Therapeutic from Products of Conception, Via Natural or Artificial Opening (ICD-10-PCS; 2024-03-09) | DX: O48.0 Post-term pregnancy (principal); D68.51 Activated protein C resistance; Z37.0 Single live birth; O99.12 Other diseases of the blood and blood-forming organs and certain disorders involving the immune mechanism complicating childbirth; O70.1 Second degree perineal laceration during delivery; Z3A.40 40 weeks gestation of pregnancy; K21.9 Gastro-esophageal reflux disease without esophagitis; O99.62 Diseases of the digestive system complicating childbirth ==